=== PATIENT | male | born 1980 | race African-American/Black ===

== ENCOUNTER 2017-12-11 10:49 | Emergency (ER) | payer OTHER ==
[~2017-12-11] VITALS: Ht 198.1 cm; Wt 79.4 kg
[2017-12-11 10:50] VITALS: BP 120/75
[2017-12-11] MEDS ORDERED: OSELB75 PO (11:35)
== END 2017-12-11 11:50 | disposition home or self-care (01) ==
LOC: ER 10:49
DX: J10.1 Influenza due to other identified influenza virus with other respiratory manifestations (principal); F17.210 Nicotine dependence, cigarettes, uncomplicated